=== PATIENT | male | born 1955 | race Caucasian/White ===

== ENCOUNTER 2019-01-19 17:19 | Emergency (ER) | payer MEDICARE, BC ==
[2019-01-19] MEDS ORDERED: Lidocaine 2% Jelly 10 ML Urojet ONE (17:45)
[2019-01-19] MEDS ORDERED: Lidocaine 2% Jelly 10 ML Urojet MUCMEM ONE (17:45)
--- NOTE | 2019-01-19 18:39 | EDM.PDOC ---
Scribed by Samara Dougherty 01/19/19 1838 for Juliano Shelton MD ED HPI GENERAL MEDICAL PROBLEM - General Chief Complaint: Genitourinary Problem Stated Complaint: CANT PEE Time Seen by Provider: 01/19/19 17:44 Source of Information: Reports: Patient, RN, RN Notes Reviewed History Limitations: Reports: No Limitations - History of Present Illness INITIAL COMMENTS - FREE TEXT/NARRATIVE: Patient presents to ER with problems passing urine. He has not passed urine since 5 a.m. this morning. He has a history of bladder cancer. - Related Data Allergies Allergy/AdvReac Type Severity Reaction Status Date / Time No Known Allergies Allergy Verified 01/19/19 17:42 Home Meds: Home Meds Aspirin 81 mg PO DAILY 01/19/19 [History] ED ROS GENERAL - Review of Systems Review Of Systems: Unable To Obtain (patient not seen) ED EXAM, RENAL/ - Physical Exam Exam: Not Obtained (due to patient not seen) Course - Vital Signs Last Recorded V/S: Last Vital Signs Temp 36.4 C 01/19/19 17:47 Pulse 101 H 01/19/19 17:47 Resp 20 01/19/19 17:47 BP 166/100 H 01/19/19 17:47 Pulse Ox 100 01/19/19 17:47 - Orders/Labs/Meds Meds: Medications Discontinued Medications Generic Name Dose Route Start Last Admin Trade Name Janeth PRN Reason Stop Dose Admin Lidocaine HCl Confirm 01/19/19 17:45 Xylocaine 2% Jelly Administered 01/19/19 17:46 Dose 10 ml .ROUTE .STK-MED ONE - Re-Assessments/Exams Free Text/Narrative Re-Assessment/Exam: 01/19/19 18:19 Nurse attempted to catheterize the patient without success. Dr. Shelton explained to patient to go to [facility]. 01/19/19 18:[address] Bairon Hummel @ who kindly accepted pt Departure - Departure Time of Disposition: 18:37 Disposition: DC/Tfer to Acute Hospital 02 Condition: Fair Clinical Impression: Prostate cancer, Urine retention - Discharge Information Forms: Interfacility Transfer EMTALA I have read and agree with the documentation that has been completed regarding this visit. By signing this record, I attest that the documentation was completed in my physical presence and is an accurate record of the encounter.
== END 2019-01-19 18:40 ==
LOC: DL.ED 17:19
DX: R30.0 Dysuria (principal); Z79.899 Other long term (current) drug therapy
CPT/HCPCS: 99283